=== PATIENT | female | born 1985 | race African-American/Black ===

== ENCOUNTER 2017-01-20 09:28 | Emergency (ER) | payer OTHER ==
[2017-01-20 09:31] VITALS: TEMP 98.6; BMI 37.8
--- NOTE | 2017-01-20 09:49 | PDOC ---
History of Present Illness - History of Present Illness Initial Comments: 01/20/17 10:18 The patient is a 31 year old female, , with a significant past medical history of asthma (nebulizers and albuterol inhaler as needed) who presents to the emergency department for evaluation of suprapubic pain and passing a large dark clot which passed vaginally this morning. She reports her menstrual period started on 01/20/17 which started as her typical low back pain, however , reports a sudden onset of 8/10 pain to her bilateral suprapubic region this morning. 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 She denies chest pain, shortness of breath, headache and dizziness. She denies fever, chills, nausea, vomit, diarrhea and constipation. She denies dysuria, frequency, urgency and hematuria. 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 Gallo <Chana Cottrell - Last Filed: 01/20/17 12:19> <Priscilla Magaña - Last Filed: 01/20/17 12:46> - General Chief Complaint: Vaginal Bleeding Stated Complaint: VAGINAL BLEEDING Time Seen by Provider: 01/20/17 09:42 Past History <Chana Cottrell - Last Filed: 01/20/17 12:19> - Past Medical History Asthma: Yes - Reproductive History Cervical CA: No Dysfunctional Uterine Bleeding: No Ectopic : No Endometrial CA: No Polycystic Ovaries: No Spontaneous : 0 - Immunization History Immunization Up to Date: Yes - Suicide/Smoking/Psychosocial Hx Smoking Status: No Smoking History: Never smoked Years of Tobacco Use: 1 Have you smoked in the past 12 months: No Number of Cigarettes Smoked Daily: 0 Information on smoking cessation initiated: No Hx Alcohol Use: No Drug/Substance Use Hx: No Substance Use Type: None <Priscilla Magaña - Last Filed: 01/20/17 12:46> - Past Medical History Allergies/Adverse Reactions: Allergies Allergy/AdvReac Type Severity Reaction Status Date / Time Penicillins Allergy Rash Verified 01/20/17 09:32 SEAFOOD Allergy Mild Swelling Uncoded 01/20/17 09:32 Home Medications: Ambulatory Orders NK [No Known Home Medication] 01/20/17 Review of Systems - Review of Systems Able to Perform ROS?: Yes Comments:: 01/20/17 10:18 GENERAL/CONSTITUTIONAL: No fever or chills. No weakness. HEAD, EYES, EARS, NOSE AND THROAT: No change in vision. No ear pain or discharge. No sore throat. GASTROINTESTINAL: No nausea, vomiting, diarrhea or constipation. GENITOURINARY: No dysuria, frequency, or change in urination REPRODUCTIVE: (+) passing large clots during MP. CARDIOVASCULAR: No chest pain or shortness of breath. RESPIRATORY: No cough, wheezing, or hemoptysis. MUSCULOSKELETAL: No joint or muscle swelling or pain. No neck or back pain. SKIN: No rash NEUROLOGIC: No headache, vertigo, loss of consciousness, or change in strength/ sensation. ENDOCRINE: No increased thirst. No abnormal weight change. HEMATOLOGIC/LYMPHATIC: No anemia, easy bleeding, or history of blood clots. ALLERGIC/IMMUNOLOGIC: No hives or skin allergy. <Chana Cottrell - Last Filed: 01/20/17 12:19> *Physical Exam - Vital Signs Last Vital Signs Temp Pulse Resp BP Pulse Ox 98.6 F 79 18 133/76 100 01/20/17 09:29 01/20/17 09:29 01/20/17 09:29 01/20/17 09:29 01/20/17 09:29 - Physical Exam Comments: 01/20/17 10:19 Constitutional: Awake, alert, oriented. No acute distress. Head: Normocephalic. Atraumatic Eyes: PERRL. EOMI. Conjunctivae are not pale. ENT: Mucous membranes are moist and intact. Posterior pharynx without exudates or erythema. Uvula midline. Neck: Supple. Full ROM. No lymphadenopathy. Cardiovascular: Regular rate. Regular rhythm. S1, S2 regular. Distal pulses are 2+ and symmetric. Pulmonary/Chest: No evidence of respiratory distress. Clear to auscultation bilaterally No wheezing, rales or rhonchi. Abdominal: (+) mild bilateral pelvic ttp. Mild suprapubic ttp. Soft and non- distended. No rebound, guarding or rigidity. No organomegaly. No palpable masses. Good bowel sounds. Back: No CVA tenderness. Musculoskeletal: No edema. No cyanosis. No clubbing. Full range of motion in all extremities. Nocalf tenderness. Radial/pedal pulses are intact and 2+ bilaterally Skin: Skin is warm and dry. No petechiae. No purpura. Neurological: Alert and oriented to person, place, and time. Cranial nerves II -XII are grossly intact. Normal speech. Strength is grossly symmetric. No sensory deficits. Psychiatric: Good eye contact. Normal interaction, affect and behavior. Pelvic: (+) Some blood in vaginal vault. Blood coming from cervix, cervix is closed, mild adnexal ttp, no CMT, <Chana Cottrell - Last Filed: 01/20/17 12:19> - Vital Signs Last Vital Signs Temp Pulse Resp BP Pulse Ox 98.6 F 79 18 133/76 100 01/20/17 09:29 01/20/17 09:29 01/20/17 09:29 01/20/17 09:29 01/20/17 09:29 <Priscilla Magaña - Last Filed: 01/20/17 12:46> ED Treatment Course - LABORATORY CBC & Chemistry Diagram: 01/20/17 10:40 01/20/17 10:40 - RADIOLOGY Radiograph Interpretation: EXAM#: TYPE/EXAM: RESULT: [id number] US/TRANSVAGINAL ULTRASOUND US Heavy vaginal bleeding Pelvis ultrasound, transabdominal and transvaginal LMP: Currently Bleeding. The uterus is anteverted measuring 9.9 x 4.3 cm with homogeneous echotexture. Normal-appearing endometrial stripe measuring 6 mm in thickness. The left ovary measures 3 x 1.9 cm with a few small cysts/follicles and normal vascular flow. The right ovary measures 4.5 x 2.9 with a couple of simple cysts/follicles the largest measuring 2 cm and with normal vascular flow. There is a masslike density in the right adnexa adjacent to and inseparable from the right ovary measuring 6 x 5.6 cm with heterogeneous hyper and hypoechoic echotexture suggestive of a dermoid. There is a small amount of free fluid in the cul-de- sac IMPRESSION: Right adnexal heterogeneously echogenic mass measuring 6 x 5.6 cm that is inseparable from the right ovary suggestive of a dermoid. Further evaluation and confirmation with MRI of the pelvis is recommended. Reported By: Alix Mckenzie MD 01/20/17 1216 <Chana Cottrell - Last Filed: 01/20/17 12:19> - LABORATORY CBC & Chemistry Diagram: 01/20/17 10:40 01/20/17 10:40 <Priscilla Magaña - Last Filed: 01/20/17 12:46> Medical Decision Making - Medical Decision Making 01/20/17 10:32 a/p: 31yo female with heavy menstrual bleeding and passing clots -fdlmp was 12/17 -unsure if , will check UA, ucg, cbc, chem -pelvic ultrasound depending on status -only has had 1 pad of bleeding since 3am 01/20/17 12:43 pt has been ambulatory in the ED. no more heavy bleeding. no further passage of clots. Follows with Dr. Gallo for tip inserter. Discussed poss dermoid cyst seen on ultrasound and size. Discussed hgb of 10 and mcv of 67. Pt states she understands all instructions. Discussed all reasons to return to the ED. Answered all questions. <Priscilla Magaña - Last Filed: 01/20/17 12:46> *DC/Admit/Observation/Transfer - Attestations Scribe Attestion: 01/20/17 10:20 Documentation prepared by Chana Cottrell, acting as medical unit secretary for Priscilla Magaña DO, MD <Chana Cottrell - Last Filed: 01/20/17 12:19> - Discharge Dispostion Admit: No - Attestations Physician Attestion: 01/20/17 12:46 I, Dr. Priscilla Magaña DO, attest that this document has been prepared under my direction and personally reviewed by me in its entirety. I further attest, that it accurately reflects all work, treatment, procedures and medical decision -making performed by me. <Priscilla Magaña - Last Filed: 01/20/17 12:46> Diagnosis at time of Disposition: Abnormal vaginal bleeding, Mature cystic teratoma - Discharge Dispostion Disposition: HOME Condition at time of disposition: Stable - Referrals Referrals: Katrin Chen [Primary Care Provider] - Suzan Gallo [Non Staff, Medical] - - Patient Instructions Printed Discharge Instructions: DI for Vaginal Bleeding, DI for Ovarian Cyst Additional Instructions: Please follow up with your PICKING TECH. Please have your labs repeated by your PMD. Please return to the ED with any further concerns.
[2017-01-20 10:55] LABS: BASOPHIL 0.5 % (0-2.0); EOSINOPHIL 2.2 % (0-4.5); MCH 21.4 pg (25.7-33.7); MCHC 31.7 g/dl (32.0-36.0); MEAN CELL VOLUME 67.5 fl (80-96); MEAN PLT VOLUME 10.2 fl (7.5-11.1); NEUTROPHILS 66.9 % (42.8-82.8); PLATELET COUNT 190 K/MM3 (134-434); RDW 17.7 % (11.6-15.6); WHITE BLOOD COUNT 7.7 K/mm3 (4.0-10.0)
[2017-01-20 11:08] LABS: URINE APPEARANCE CLEAR; URINE BILIRUBIN NEGATIVE (NEGATIVE); URINE BLOOD 2+ (NEGATIVE); URINE COLOR LTYELLOW; URINE GLUCOSE (UA) NEGATIVE (NEGATIVE); URINE KETONE NEGATIVE (NEGATIVE); URINE NITRITE NEGATIVE (NEGATIVE); URINE PROTEIN NEGATIVE (NEGATIVE); URINE UROBILINOGEN NEGATIVE mg/dL (0.2-1.0)
[2017-01-20 11:23] LABS: URINE MUCUS RARE; URINE RBC <1 /hpf (0-3); URINE WBC 1 /hpf (3-5)
[2017-01-20 11:28] LABS: ALBUMIN 3.6 g/dl (3.4-5.0); ANION GAP 11 (8-16); CALCIUM 8.8 mg/dL (8.5-10.1); CO2 26 mmol/L (21-32); CREATININE 0.8 mg/dL (0.55-1.02); GLUCOSE,RANDOM 84 mg/dL (74-106); SGOT/AST 13 U/L (15-37); SGPT/ALT 15 U/L (12-78)
[2017-01-20 11:32] LABS: ALK PHOS 110 U/L (45-117); BILIRUBIN,TOTAL 0.4 mg/dL (0.2-1.0); TOT PROT 7.7 g/dl (6.4-8.2)
[2017-01-20 12:18] LABS: HYPOCHROMIA 2+; MICROCYTOSIS 1+
[2017-01-20 12:50] LABS: URINE LEUK ESTERASE Negative (NEGATIVE)
[2017-01-20 12:59] VITALS: BP 132/60; PULSE 71
== END 2017-01-20 13:01 | disposition home or self-care (01) ==
LOC: JER 09:28
DX: D27.0 Benign neoplasm of right ovary (principal)
CPT/HCPCS: 36415; 76830-TC; 80053; 81003; 81015; 84702; 84703; 85025; 86850; 86900; 86901; 99284-25